=== PATIENT | female | born 1955 | race Caucasian/White ===

== ENCOUNTER → 2018-02-13 | Outpatient (CLI) | payer OTHER | LOC: M.CT 16:00 → M.ULTRA 16:00 → EDBD 16:15 | DX: M79.662 Pain in left lower leg (principal); M79.89 Other specified soft tissue disorders; I87.1 Compression of vein ==

== ENCOUNTER → 2018-02-24 | Outpatient (CLI) | payer OTHER | LOC: EDBD 02-13 15:54 → EDUNIT# 02-13 15:54 → M.CT 07:38 | DX: N93.8 Other specified abnormal uterine and vaginal bleeding (principal) ==

== ENCOUNTER 2019-10-20 11:27 | Emergency (ER) | payer OTHER, MEDICARE ==
[~2019-10-20] VITALS: Ht 154.9 cm; Wt 63.5 kg
[2019-10-20 12:07] LABS: HEMATOCRIT 38.4 % (37.0-47.0); MCH 30.5 pg (26.0-34.0); MCV 89.7 fL (80.0-100.0); MPV 8.2 fl. (7.2-11.1); RBC 4.28 mil/uL (4.20-5.00); RDW-CV 14.3 % (10.5-14.5); WBC 7.7 thou/uL (4.0-11.0)
[2019-10-20 12:17] LABS: CALCIUM 8.6 mg/dL (8.5-10.1); CREATININE 0.8 mg/dL (0.6-1.3); POTASSIUM 3.4 mmol/L (3.5-5.1)
[2019-10-20 13:53] LABS: URINE BILIRUBIN NEGATIVE (Negative); URINE BLOOD NEGATIVE (Negative); URINE CLARITY CLEAR; URINE COLOR YELLOW; URINE GLUCOSE-RANDOM NEGATIVE (Negative); URINE KETONES NEGATIVE (Negative); URINE LEUKOCYTES-REFLEX TRACE (Negative); URINE NITRITE-REFLEX NEGATIVE (Negative); URINE PROTEIN NEGATIVE (Negative); URINE SPECIFIC GRAVITY <= 1.005 (1.005-1.030); URINE UROBILINOGEN 0.2 E.U./dl (0.2-1.0)
[2019-10-20 14:05] LABS: BACTERIA-REFLEX None Seen /HPF (None Seen); CASTS None Seen /LPF (None Seen); CRYSTALS None Seen /LPF (None Seen); MUCUS None Seen strn/LPF (None Seen); SQUAMOUS 0-3 Few /LPF (0-3); URINE RBC 0-2 Rare /HPF (0-2); URINE WBC-REFLEX 0-5 Rare /HPF (0-5)
--- NOTE | 2019-10-20 14:34 | EKG ---
[place] [address] ELECTROCARDIOGRAM REPORT Name: LIONEL DELGADILLO Room: [facility]#: [id number] Admission: 10/20/19 Attend Phys: Discharge: Date of : 53 Report #: [id number] THIS REPORT FOR: //name// [facility] ED Test Date: 2019-10-20 Test Time: 12:04:37 Pat Name: LIONEL DELGADILLO Department: Room: Gender: F [employer] Operator: HERB : 1955 Requested By: Kvng Covarrubias Order Number: [id number] MD: Edgar Snyder Measurements Intervals [place] Rate: 61 P: 46 W[place]: 156 QRS: 31 QRSD: 86 T: 29 QT: 448 QTc: 452 Interpretive Statements Sinus rhythm No previous ECG available for comparison Electronically Signed On 10-20-2019 14:33:32 EXCELLENCE MANAGER by Edgar Snyder [email or web address] <ELECTRONICALLY SIGNED> By: Edgar Snyder MD, [facility] 10/20/19 1433 1204 1204 Edgar Snyder MD, FACC /EPI
[2019-10-20 14:44] VITALS: BP 132/78
== END 2019-10-20 14:45 | disposition home or self-care (01) ==
LOC: M.ERS 11:27
PROVIDERS: Emergency Medicine Emergency Medical Services
DX: T75.4XXA Electrocution, initial encounter (principal); M79.641 Pain in right hand; Z90.710 Acquired absence of both cervix and uterus; Z85.3 Personal history of malignant neoplasm of breast; Z88.6 Allergy status to analgesic agent; W86.8XXA Exposure to other electric current, initial encounter; Y93.89 Activity, other specified; Y92.89 Other specified places as the place of occurrence of the external cause; Y99.0 Civilian activity done for income or pay

== ENCOUNTER 2019-10-26 04:51 | Emergency (ER) | payer OTHER, MEDICARE ==
[~2019-10-26] VITALS: Ht 152.4 cm; Wt 64.9 kg
[2019-10-26 06:05] LABS: CALCIUM 9.1 mg/dL (8.5-10.1); CREATININE 0.6 mg/dL (0.6-1.3); POTASSIUM 3.9 mmol/L (3.5-5.1)
[2019-10-26 06:09] LABS: ALBUMIN 3.9 g/dL (3.4-5.0); TOTAL BILIRUBIN 0.6 mg/dL (<0.1-1.0); TOTAL PROTEIN 7.7 g/dL (6.4-8.2)
[2019-10-26 06:26] LABS: ABSOLUTE BASOPHILS 0.1 thou/uL (0.0-0.2); ABSOLUTE LYMPHOCYTES 1.1 thou/uL (0.8-5.3); ABSOLUTE MONOCYTES 0.4 thou/uL (0.0-1.2); ABSOLUTE NEUTROPHILS 12.3 thou/uL (1.6-8.1); BASOPHILS 0.4 %; HEMATOCRIT 37.7 % (37.0-47.0); HEMOGLOBIN 12.9 gm/dL (12.0-15.0); LYMPHOCYTES 7.8 %; MCH 30.3 pg (26.0-34.0); MCHC 34.2 g/dL (28.0-37.0); MCV 88.7 fL (80.0-100.0); MONOCYTES 2.7 %; MPV 8.5 fl. (7.2-11.1); NUCLEATED RBCS 0 /100WBC; PLATELET COUNT* 257 thou/uL (150-400); POLYS 89.1 %; RBC 4.25 mil/uL (4.20-5.00); RDW-CV 14.6 % (10.5-14.5); WBC 13.8 thou/uL (4.0-11.0)
[2019-10-26 07:11] LABS: URINE BILIRUBIN NEGATIVE (Negative); URINE BLOOD NEGATIVE (Negative); URINE CLARITY CLEAR; URINE COLOR YELLOW; URINE GLUCOSE-RANDOM 1+ (Negative); URINE KETONES TRACE (Negative); URINE LEUKOCYTES-REFLEX NEGATIVE (Negative); URINE NITRITE-REFLEX NEGATIVE (Negative); URINE PROTEIN NEGATIVE (Negative); URINE SPECIFIC GRAVITY 1.015 (1.005-1.030); URINE UROBILINOGEN 0.2 E.U./dl (0.2-1.0)
[2019-10-26 07:19] LABS: AMP/METHAMP Negative (Negative); BARBITURATES Negative (Negative); BENZODIAZEPINES Negative (Negative); COCAINE Negative (Negative); METHADONE Negative (Negative); OPIATES Negative (Negative); PCP Negative (Negative); THC Negative (Negative)
[2019-10-26] MEDS ORDERED: ZOFRAN ODT4 MG SUBLING (08:32)
[2019-10-26] MEDS ORDERED: FLAGYL500 M1 PO (08:32)
[2019-10-26] MEDS ORDERED: NORCO 5-325 TA1 EAC1 PO (08:32)
[2019-10-26] MEDS ORDERED: CIPROFLOXACIN500 M1 PO (08:32)
[2019-10-26 08:50] VITALS: BP 146/87
== END 2019-10-26 08:50 | disposition home or self-care (01) ==
LOC: M.ERS 04:51
PROVIDERS: Personal Emergency Response Attendant
DX: K57.32 Diverticulitis of large intestine without perforation or abscess without bleeding (principal); R11.2 Nausea with vomiting, unspecified; Z88.6 Allergy status to analgesic agent; Z90.710 Acquired absence of both cervix and uterus; Z90.11 Acquired absence of right breast and nipple; Z85.3 Personal history of malignant neoplasm of breast

== ENCOUNTER 2019-10-27 12:39 | Inpatient (IN) | payer OTHER, MEDICARE ==
[~2019-10-27] VITALS: Ht 154.9 cm; Wt 63.0 kg
[~2019-10-27 12:39] MED LIST: CIPROFLOXACIN500 M1 PO; FLAGYL500 M1 PO; NORCO 5-325 TA1 EAC1 PO; ZOFRAN ODT4 MG SUBLING
[2019-10-27 13:00] VITALS: BP 145/96
[2019-10-27 15:13] LABS: ABSOLUTE BASOPHILS 0.1 thou/uL (0.0-0.2); ABSOLUTE LYMPHOCYTES 1.8 thou/uL (0.8-5.3); ABSOLUTE MONOCYTES 0.7 thou/uL (0.0-1.2); ABSOLUTE NEUTROPHILS 9.8 thou/uL (1.6-8.1); BASOPHILS 0.7 %; EOSINOPHILS 0.1 %; HEMOGLOBIN 13.5 gm/dL (12.0-15.0); LYMPHOCYTES 14.8 %; MCH 30.3 pg (26.0-34.0); MCHC 34.5 g/dL (28.0-37.0); MONOCYTES 5.3 %; MPV 8.4 fl. (7.2-11.1); NUCLEATED RBCS 0 /100WBC; PLATELET COUNT* 295 thou/uL (150-400); POLYS 79.1 %; RBC 4.44 mil/uL (4.20-5.00); RDW-CV 14.3 % (10.5-14.5); WBC 12.4 thou/uL (4.0-11.0)
[2019-10-27 15:23] LABS: CALCIUM 9.1 mg/dL (8.5-10.1); CREATININE 0.8 mg/dL (0.6-1.3)
[2019-10-27 15:26] LABS: ALBUMIN 3.8 g/dL (3.4-5.0); TOTAL BILIRUBIN 0.6 mg/dL (<0.1-1.0); TOTAL PROTEIN 7.8 g/dL (6.4-8.2)
[2019-10-27 20:08] VITALS: BP 154/73
[2019-10-27 20:09] VITALS: BP 110/56
[2019-10-28 10:15] VITALS: BP 145/81
[2019-10-28 16:27] VITALS: BP 137/74
[2019-10-28 20:00] VITALS: BP 142/82
[2019-10-29 08:30] VITALS: BP 126/65
[2019-10-29 16:30] VITALS: BP 146/61
[2019-10-29 16:30] LABS: ABSOLUTE LYMPHOCYTES 2.4 thou/uL (0.8-5.3); ABSOLUTE MONOCYTES 0.9 thou/uL (0.0-1.2); BASOPHILS 0.5 %; EOSINOPHILS 0.2 %; HEMATOCRIT 38.1 % (37.0-47.0); HEMOGLOBIN 12.9 gm/dL (12.0-15.0); LYMPHOCYTES 25.6 %; MCHC 33.9 g/dL (28.0-37.0); MCV 88.4 fL (80.0-100.0); MONOCYTES 9.3 %; MPV 8.9 fl. (7.2-11.1); NUCLEATED RBCS 0 /100WBC; PLATELET COUNT* 264 thou/uL (150-400); POLYS 64.4 %; RBC 4.31 mil/uL (4.20-5.00); RDW-CV 13.9 % (10.5-14.5); WBC 9.3 thou/uL (4.0-11.0)
[2019-10-29 16:45] LABS: ALBUMIN 3.2 g/dL (3.4-5.0); CREATININE 0.6 mg/dL (0.6-1.3); TOTAL BILIRUBIN 0.5 mg/dL (<0.1-1.0); TOTAL PROTEIN 6.2 g/dL (6.4-8.2)
[2019-10-29 16:47] LABS: POTASSIUM 2.5 mmol/L (3.5-5.1)
[2019-10-29 20:00] VITALS: BP 138/68
[2019-10-30 07:20] VITALS: BP 136/68
[2019-10-30 12:11] LABS: HEMATOCRIT 37.8 % (37.0-47.0); MCH 30.5 pg (26.0-34.0); MCHC 34.3 g/dL (28.0-37.0); MCV 88.9 fL (80.0-100.0); MPV 8.6 fl. (7.2-11.1); RBC 4.25 mil/uL (4.20-5.00); RDW-CV 14.1 % (10.5-14.5)
[2019-10-30 12:20] LABS: CALCIUM 8.1 mg/dL (8.5-10.1); CREATININE 0.7 mg/dL (0.6-1.3)
[2019-10-30 12:21] LABS: POTASSIUM 4.2 mmol/L (3.5-5.1)
[2019-10-30 16:00] VITALS: BP 111/57
[2019-10-30 22:30] VITALS: BP 123/76
[2019-10-31 03:37] LABS: HEMATOCRIT 33.7 % (37.0-47.0); HEMOGLOBIN 11.5 gm/dL (12.0-15.0); MCH 30.6 pg (26.0-34.0); MCHC 34.2 g/dL (28.0-37.0); MCV 89.4 fL (80.0-100.0); MPV 8.6 fl. (7.2-11.1); RBC 3.76 mil/uL (4.20-5.00); WBC 9.2 thou/uL (4.0-11.0)
[2019-10-31 03:57] LABS: ALBUMIN 2.8 g/dL (3.4-5.0); CALCIUM 7.8 mg/dL (8.5-10.1); CREATININE 0.7 mg/dL (0.6-1.3); POTASSIUM 3.4 mmol/L (3.5-5.1); TOTAL BILIRUBIN 0.4 mg/dL (<0.1-1.0); TOTAL PROTEIN 5.3 g/dL (6.4-8.2)
[2019-10-31 07:20] VITALS: BP 101/63
[2019-10-31 15:24] VITALS: BP 104/61
[2019-11-01 09:45] VITALS: BP 118/82
[2019-11-01 15:42] VITALS: BP 124/60
[2019-11-01 21:00] VITALS: BP 104/61
[2019-11-02 07:50] VITALS: BP 105/67
[2019-11-02] MEDS ORDERED: REGLAN 10 MG TA10 MG PO (10:35)
[2019-11-02] MEDS ORDERED: TRANSDERM-SCOP1 EACH TRANSDERM (10:35)
[2019-11-02] MEDS ORDERED: ZOFRAN ODT4 MG SUBLING (10:35)
[2019-11-02] MEDS ORDERED: FLORANEX TABLE1 EACH PO (10:36)
[2019-11-02] MEDS ORDERED: MOXIFLOXACIN H400 MG PO (10:36)
--- NOTE | 2019-11-02 12:24 | CON ---
[address] [address] CONSULTATION Name: LIONEL DELGADILLO Room: [address] IN M.R.#: [id number] Admission: 10/27/19 Attend Phys: Dejah Kaur Discharge: Date of : 53 Report #: [id number] THIS REPORT FOR: //name// cc: Baylee Maria MD, Tuongvan T. MD ~ THIS REPORT FOR: //name// CC: Dejah Rosario DATE OF SERVICE: 10/29/2019 HISTORY OF PRESENT ILLNESS: This is a pleasant 64-year-old female with past medical history significant for breast cancer, status post mastectomy, who was presenting for evaluation of abdominal pain. The patient presented with abdominal pain a couple of days back, but she was diagnosed with diverticulitis and recommended outpatient treatment. However, the patient continued to have severe abdominal pain, which prompted this hospitalization. The patient reports the pain began 5 days back. It is located in the lower abdomen. It is localized, nonradiating, associated with nausea and dry heaving. The patient denies any vomiting. Additionally, the patient reports that she has not had any bowel movement for the last 3 days. The patient denies similar episodes in the past. The patient reports her last colonoscopy was about 8 years back. She is unsure of the results of this. PAST MEDICAL HISTORY: Breast cancer. PAST SURGICAL HISTORY: Lumpectomy, hysterectomy. SOCIAL HISTORY: The patient denies smoking, alcohol or recreational drug use. FAMILY HISTORY: No family history of colon cancer or [place] related neoplasia. REVIEW OF SYSTEMS: Comprehensive 10-point review of systems is negative except for what was mentioned in the HPI. PHYSICAL EXAMINATION: VITAL SIGNS: Temperature 37.1, pulse rate 83, respiratory rate 17, blood pressure 146/61. GENERAL: The patient is alert, awake, oriented x 3. HEENT: Pupils are equal, round, reactive to light and accommodation. Mucous membranes are moist. There is no congestion. LUNGS: Clear to auscultation bilaterally. CARDIOVASCULAR: Rate and rhythm regular, S1, S2 present. ABDOMEN: Soft. There is tenderness to palpation in the right lower quadrant suprapubic region. Mucous membranes are moist. [place] [address] CONSULTATION Name: LIONEL DELGADILLO Room: [address] IN [facility].#: [id number] Admission: 10/27/19 Attend Phys: Dejah Kaur Discharge: Date of : 53 Report #: [id number] EXTREMITIES: Warm, well perfused. There is no edema. LABORATORY DATA: WBC count 9.3, hemoglobin 12.9, hematocrit 38.1, platelet count 264. Sodium 138, potassium 2.5, chloride 100, bicarbonate 30, BUN 7, creatinine 0.6, total bilirubin 0.5, AST 24, ALT 28, alkaline phosphatase 57, lipase 104. IMAGING: CT abdomen and pelvis performed on 10/26/2019 demonstrates sigmoid colon diverticulitis without abscess or perforation. ASSESSMENT AND PLAN: Pleasant 64-year-old female with a first episode of diverticulitis. Continue IV Cipro and Flagyl until she is able to tolerate p.o. and when she is able to tolerate p.o., we can switch her to oral. Continue her current antiemetic regimen. I would recommend repeating a colonoscopy outpatient in 6-8 weeks for followup of her diverticulitis. Thank you for this consultation. <ELECTRONICALLY SIGNED> By: Everton Toney MD 11/02/19 1224 1755 [id number] Toney MD /nt
[2019-11-02 16:00] VITALS: BP 112/66
[2019-11-02 20:35] VITALS: BP 94/45
[2019-11-03 08:58] VITALS: BP 100/61
[2019-11-03] MEDS ORDERED: PEPCID20 MG PO (09:53)
[2019-11-03 11:38] VITALS: BP 100/61
== END 2019-11-03 13:06 | disposition home or self-care (01) | DRG 392 ==
LOC: M.ERS 12:39 → M.ORTHSURG 16:16 → M.TBA-ER 16:16 → M.ORTHSURG 20:03
PROVIDERS: Family Medicine; Internal Medicine; ADMIT Family Medicine
DX: K57.32 Diverticulitis of large intestine without perforation or abscess without bleeding (principal); K59.00 Constipation, unspecified; E87.6 Hypokalemia; Z85.3 Personal history of malignant neoplasm of breast; Z90.11 Acquired absence of right breast and nipple; Z90.710 Acquired absence of both cervix and uterus; Z79.899 Other long term (current) drug therapy; Z88.8 Allergy status to other drugs, medicaments and biological substances; Z91.041 Radiographic dye allergy status